=== PATIENT | male | born 1995 | race Caucasian/White ===

== ENCOUNTER 2023-04-16 07:10 | Emergency (ER) | payer OTHER ==
[~2023-04-16] VITALS: Ht 177.8 cm; Wt 77.1 kg
[2023-04-16 07:18] VITALS: BP 134/84; PULSE 68; RESP 17; TEMP 97.5; O2SAT 96
[2023-04-16] MEDS ORDERED: BUPR1FIL2 SL (08:43)
[2023-04-16 10:14] VITALS: O2SAT 100
[2023-04-16 10:29] VITALS: BP 134/84; PULSE 67; RESP 17; TEMP 97.5; O2SAT 100
== END 2023-04-16 09:40 | disposition home or self-care (01) ==
LOC: MED 07:10
DX: F11.10 Opioid abuse, uncomplicated (principal); Z79.899 Other long term (current) drug therapy
CPT/HCPCS: 99285